=== PATIENT | female | born 1960 | race African-American/Black ===

== ENCOUNTER 2017-01-19 19:52 | Emergency (ER) | payer MEDICAID ==
[~2017-01-19] VITALS: Ht 167.6 cm; Wt 77.1 kg
--- NOTE | 2017-01-19 20:08 | Emergency Room Report ---
History of Present Illness General Chief Complaint: Multiple Trauma/Fall Source: Patient Present Illness HPI Patient reports that she was mopping about 4 hours ago she had a mechanical fall onto her left hand She has pain to the left hand up to the forearm Pain is 5/10 worse with movement or touch denies any other cuts or bleeding patient has previous trauma to the left hand denies any neck pain or photophobia Reports a purely mechanical fall in nature Allergies: Coded Allergies: No Known Allergies (Unverified , 01/19/17) Patient History Past Medical History: see triage record Pertinent Family History: none Now: No Reviewed Nursing Documentation: PMH: Agreed, PSxH: Agreed Nursing Documentation-PMH Past Medical History: No Stated History Review of Systems All Other Systems: negative except mentioned in HPI Physical Exam Vital Signs Date Time Temp Pulse Resp B/P Pulse Ox O2 Delivery O2 Flow Rate FiO2 01/19/17 19:59 98.8 89 15 137/94 97 Room Air Sp02 EP Interpretation: reviewed, normal General Appearance: well appearing, no apparent distress, non-toxic Head: normocephalic, atraumatic Eyes: bilateral eye EOMI, bilateral eye PERRL Neck: full range of motion, supple Respiratory: chest non-tender, lungs clear, normal breath sounds Cardiovascular #1: regular rate, rhythm Musculoskeletal: other - Obvious swelling to the dorsal left hand over the first metacarpal region Neurologic: alert, oriented x3, responsive Skin: other - As above Lymphatic: no adenopathy Procedures Splinting Splinting : Consent: Verbal Pre-Made Type: velcro Splint: volar Pre-Proc Neuro Vasc Exam: normal Post-Proc Neuro Vasc Exam: normal Patient Tolerated: Well Complications: None Progress left hand Medical Decision Making Diagnostic Impression: Primary Impression: Hand contusion Additional Impression: Hand fracture ER Course Given the patient's history and exam imaging study was obtained There is some nonspecific findings including the base of the Second metacarpal area Also the radial head region patient's main discomfort and clinical swelling is at the dorsal hand however Given this patient did have a splint applied to the hand Please refer to the note for that and the patient Will have a re\re imaging as needed in the next 7-10 days Other X-Ray Diagnostic Results Other X-Ray Diagnostic Results #1: EP Interpretation: Yes Findings: no dislocation, other - Soft tissue swelling, base of the second metacarpal on usual appearance consider acute versus chronic pathology, no foreign body Number of Views: 3 - left hand Other X-Ray Diagnostic Results #2: EP Interpretation: Yes Findings: no dislocation, no soft tissue swelling, other - Radial head unusual appearance, considered acute versus chronic/indeterminate pathology, no obvious foreign body Number of Views: 2 - left forearm Last Vital Signs Date Time Temp Pulse Resp B/P Pulse Ox O2 Delivery O2 Flow Rate FiO2 01/19/17 19:59 98.8 89 15 137/94 97 Room Air Status: improved Disposition: HOME, SELF-CARE Condition: Improved Scripts Ibuprofen* (MOTRIN*) 600 Mg Tablet 600 MG ORAL Q8H Y for For Pain, #20 TAB 0 Refills Prov: ZEFERINO KIRKLAND D.O. 01/19/17 Additional Instructions: Patient is provided with the discharge instructions notified to follow up with primary doctor in the next 2-3 days otherwise return to the er with any worsening symptoms. Please note that this report is being documented using DRAGON technology. This can lead to erroneous entry secondary to incorrect interpretation by the dictating instrument. ZEFERINO KIRKLAND D.O. Jan 19, 2017 20:08
[2017-01-19 20:10] VITALS: BP 135/95
[2017-01-19] MEDS ORDERED: IBUPROFEN600 MG ORAL (20:49)
[2017-01-19 20:50] VITALS: BP 135/95
--- NOTE | 2017-01-20 14:48 | Diagnostic Imaging Report ---
Indication: PAIN Technique: 3 views left hand Comparison: none Findings: Small ossific density projects adjacent to the base of the second distal phalanx on the lateral view. This appears well corticated. No associated soft tissue swelling. Corticated ossific density projects adjacent to the shaft of the fifth proximal phalanx. No definite acute fractures. No dislocations. The joint spaces are preserved. There are proliferative changes of the second distal interphalangeal joint. Impression: No definite acute bony trauma Small ossific density projected adjacent to the base of the second distal phalangeal base, may reflect old injury or degenerative changes, acute fracture doubted the collection clinical findings is recommended. Degenerative changes, as described This agrees with the preliminary interpretation provided by the emergency room physician
--- NOTE | 2017-01-20 14:48 | Diagnostic Imaging Report ---
Indications: PAIN Technique: Two views of the left forearm Comparison: None Findings: No definite acute fractures. No dislocations. There is an old healed fracture deformity of the distal ulnar shaft. A small osseous fragment is seen the superior aspect of the elbow joint on lateral view. There is no evidence of elbow joint effusion Impression: Osseous fragment at the elbow joint, as described, suspect age indeterminate radial avulsion fracture. Correlate with clinical findings as regards acuity, considered dedicated elbow radiographs if clinically indicated. No acute process otherwise Old healed distal ulnar fracture Findings discussed by phone with Dr. Weber in emergency room at time of interpretation
== END 2017-01-19 20:50 | disposition home or self-care (01) ==
LOC: EMR 20:33
DX: S60.222A Contusion of left hand, initial encounter (principal); S62.92XA Unspecified fracture of left hand, initial encounter for closed fracture; W19.XXXA Unspecified fall, initial encounter; Y92.89 Other specified places as the place of occurrence of the external cause
CPT/HCPCS: 29280; 99283

== ENCOUNTER 2017-12-01 17:48 | Emergency (ER) | payer MEDICAID ==
[~2017-12-01] VITALS: Ht 170.2 cm; Wt 68.0 kg
[~2017-12-01 17:48] MED LIST: IBUPROFEN600 MG ORAL
[2017-12-01 21:48] VITALS: BP 122/78
[2017-12-01 21:55] VITALS: BP 122/68
--- NOTE | 2017-12-02 09:27 | Diagnostic Imaging Report ---
Indication: Headache. Head trauma. Facial pain Technique: Continuous helical transaxial imaging of the maxillofacial structures obtained without intravenous contrast administration. Coronal 2-D reformats were also obtained. Study obtained in a Siemens sensation [address] Automatic Exposure Control was utilized. Total Dose length Product (DLP): Refer to CT head mGycm CT Dose Index Volume (CTDIvol): Refer to CT head mGy Comparison: None Findings: No acute fracture is appreciated. The paranasal sinuses are clear. There is some mucosal thickening in the ethmoid region. There is an old left zygomatic fracture. There is an old fracture of the left orbital floor. The globes appear normal. The retro-orbital bulbar fat is normal. There is no evidence of retrobulbar hemorrhage or proptosis. IMPRESSION: No acute injury. [facility] has communicated the preliminary results to the Emergency Department. Their findings are largely concordant with this report. The CT scanner at [facility] is accredited by the [employer] and the scans are performed using dose optimization techniques as appropriate to a performed exam including Automatic Exposure control.
--- NOTE | 2017-12-02 09:28 | Diagnostic Imaging Report ---
Indication: Neck pain. Technique: Continuous helical imaging of the cervical spine was obtained transaxially from the skull base to the upper thoracic spine. 2-D coronal and sagittal reformatted images were obtained. Automatic Exposure Control was utilized. Total Dose length Product (DLP): 2643.[address] Dose Index Volume (CTDIvol): 70.38,15.18,14.71,28.19 mGy Comparison: None Findings: There is no acute fracture or malalignment identified. There is no soft tissue swelling identified. Moderate uncovertebral arthritis is demonstrated at multiple levels. Some of the intervertebral discs show narrowing and osteophytes. Few paraseptal blebs are noted in the visualized lung apices. Impression: No acute injury Moderate spondylosis [facility] has communicated the preliminary results to the Emergency Department. Their findings are largely concordant with this report. The CT scanner at [facility] is accredited by the [employer] and the scans are performed using dose optimization techniques as appropriate to a performed exam including Automatic Exposure control.
--- NOTE | 2017-12-02 09:57 | Diagnostic Imaging Report ---
Indication: Headache Technique: Contiguous 5 mm thick transaxial imaging of the head obtained in a Siemens Sensation [address] scanner. Soft tissue and bone windows generated. Automatic Exposure Control was utilized. Total Dose length Product (DLP): 2643.[address] Dose Index Volume (CTDIvol): 70.38,15.18,14.71,28.19 mGy Comparison: 05/22/2009 Findings: There is mild prominence of the ventricles, basal cisterns, and cerebral sulci consistent with atrophy. Mild, nonspecific, white matter hypoattenuation is noted throughout the brain consistent with chronic small vessel disease. There is no midline shift, edema, acute hemorrhage, mass effect, or abnormal extra-axial fluid collections. Bones and extra osseous soft tissues are unremarkable. Impression: No acute intracranial bleed, mass effect or edema. Mild atrophy of the brain. Nonspecific white matter hypoattenuation probably due to chronic small vessel disease. [facility] has communicated the preliminary results to the Emergency Department. Their findings are largely concordant with this report. The CT scanner at [facility] is accredited by the [employer] and the scans are performed using dose optimization techniques as appropriate to a performed exam including Automatic Exposure control.
--- NOTE | 2017-12-02 14:45 | Emergency Room Report ---
History of Present Illness General Chief Complaint: Head, Face, Neck Trauma Source: EMS Present Illness HPI 57-year-old female presents to ED for evaluation. Brought in by EMS. Patient had sustained fall today he her face. This is bruising to her face. In c- collar. Patient admits to EtOH. Denies any headache. Denies any neck pain. Denies any drug use. Denies any chest pain or shortness of breath. No other any relieving factors. Denies any other substance symptoms Allergies: Coded Allergies: No Known Allergies (Unverified , 01/19/17) Patient History Past Medical History: HTN Past Surgical History: none Pertinent Family History: none Social History: Reports: alcohol use, Denies: smoking, drug use Now: No Immunizations: UTD Reviewed Nursing Documentation: PMH: Agreed, PSxH: Agreed Nursing Documentation-PMH Past Medical History: No History, Except For Hx Hypertension: Yes Review of Systems All Other Systems: negative except mentioned in HPI Physical Exam Vital Signs Date Time Temp Pulse Resp B/P (MAP) Pulse Ox O2 Delivery O2 Flow Rate FiO2 12/01/17 17:42 97.8 96 16 124/82 98 Room Air 97.9 Sp02 EP Interpretation: reviewed, normal General Appearance: no apparent distress, alert, GCS 15, non-toxic Head: normocephalic, other - abrasions to forehead, nose Eyes: bilateral eye normal inspection, bilateral eye PERRL ENT: hearing grossly normal, normal pharynx, no angioedema, normal voice Neck: full range of motion, supple/symm/no masses Respiratory: chest non-tender, lungs clear, normal breath sounds, speaking full sentences Cardiovascular #1: regular rate, rhythm, no edema Gastrointestinal: normal bowel sounds, non tender, soft, non-distended, no guarding, no rebound Rectal: deferred Genitourinary: no CVA tenderness Musculoskeletal: normal inspection Neurologic: motor strength/tone normal, sensory intact, other - intoxicated Psychiatric: normal inspection, no suicidal/homicidal ideation, other - intoxicated Skin: normal inspection Lymphatic: normal inspection Medical Decision Making Diagnostic Impression: Primary Impression: Head, face & neck injury Qualified Codes: S19.9XXA - Unspecified injury of neck, initial encounter; S09.90XA - Unspecified injury of head, initial encounter; S09.93XA - Unspecified injury of face, initial encounter Additional Impression: Alcohol intoxication Qualified Codes: F10.929 - Alcohol use, unspecified with intoxication, unspecified ER Course Hospital Course 57-year-old female presents to ED with abrasions to face, in c-collar. Status post fall. Positive EtOH Differential diagnoses include: Fracture, dislocation, sprain, contusion Clinical course Patient placed on stretcher. After initial history and physical, I ordered CT of brain, Cspine, Facial Bones CT readings unremarkable. C-collar removed Patient allowed to sleep. Now clinically sober. Walking without difficulty Diagnosis - head face and neck injury, alcohol intoxication Stable and discharged to home. apply ice. Followup with PMD. Return to ED if symptoms recur or worsen CT/MRI/US Diagnostic Results CT/MRI/US Diagnostic Results #1: Imaging Test Ordered: CT Head Impression no acute process CT/MRI/US Diagnostic Results #2: Imaging Test Ordered: CT Facial Impression no acute process CT/MRI/US Diagnostic Results #3: Imaging Test Ordered: CT Cspine Impression no acute process Last Vital Signs Date Time Temp Pulse Resp B/P (MAP) Pulse Ox O2 Delivery O2 Flow Rate FiO2 12/01/17 21:55 98.0 78 16 122/68 99 Room Air Status: improved Disposition: HOME, SELF-CARE Condition: Stable Referrals: HAYDEN MADDOX (PCP) Patient Instructions: Alcohol Intoxication, [id number] UNIQUE GAYTAN M.D. Dec 02, 2017 14:45
== END 2017-12-01 20:55 | disposition home or self-care (01) ==
LOC: EDBD 17:48 → EMR 18:55
DX: S00.81XA Abrasion of other part of head, initial encounter (principal); S00.31XA Abrasion of nose, initial encounter; S19.9XXA Unspecified injury of neck, initial encounter; W19.XXXA Unspecified fall, initial encounter; Y92.9 Unspecified place or not applicable; F10.129 Alcohol abuse with intoxication, unspecified; I10 Essential (primary) hypertension; M47.812 Spondylosis without myelopathy or radiculopathy, cervical region; G31.9 Degenerative disease of nervous system, unspecified
CPT/HCPCS: 70450; 70486; 72125; 99284

== ENCOUNTER 2017-12-22 15:03 | Emergency (ER) | payer MEDICAID ==
[~2017-12-22] VITALS: Ht 167.6 cm; Wt 71.2 kg
--- NOTE | 2017-12-22 15:12 | Emergency Room Report ---
History of Present Illness General Chief Complaint: Abdominal Pain Source: Patient Present Illness HPI 57-year-old female brought in by EMS for one day of left flank pain, constant, nonradiating, associated with polyuria without dysuria. No history of renal stones, pyelonephritis that she knows of. Patient denies blood in the urine, , nausea, vomiting, diarrhea. States she had an episode of this a few days ago however it self resolved, did not take any home pain medication. No previous abdominal pelvic surgeries or other known medical problems side from hepatitis and also arthritis Allergies: Coded Allergies: No Known Allergies (Unverified , 01/19/17) Patient History Past Medical History: other - See history of present illness Past Surgical History: none Pertinent Family History: none Social History: Denies: smoking, alcohol use, drug use Last Menstrual Period: N/A Now: No Immunizations: UTD Reviewed Nursing Documentation: PMH: Agreed, PSxH: Agreed Nursing Documentation-PMH Past Medical History: No History, Except For Hx Hypertension: Yes Review of Systems All Other Systems: negative except mentioned in HPI Physical Exam Vital Signs Date Time Temp Pulse Resp B/P (MAP) Pulse Ox O2 Delivery O2 Flow Rate FiO2 12/22/17 14:54 97.7 70 16 146/57 100 Room Air 97.7 Sp02 EP Interpretation: reviewed, normal General Appearance: normal inspection, well appearing, no apparent distress, alert, GCS 15, non-toxic Head: normocephalic, atraumatic Eyes: bilateral eye PERRL, bilateral eye EOMI ENT: normal ENT inspection, hearing grossly normal, normal pharynx, no angioedema, normal voice, TMs + canals normal, uvula midline, moist mucus membranes Neck: normal inspection, full range of motion, supple, thyroid normal, no meningismus, no bony tend Respiratory: normal inspection, lungs clear, normal breath sounds, no rhonchi, no respiratory distress, no retraction, no accessory muscle use, no wheezing, speaking full sentences Cardiovascular #1: regular rate, rhythm, no edema, no JVD, normal capillary refill Gastrointestinal: normal inspection, normal bowel sounds, non tender, soft, no mass, no peritonitis, non-distended, no guarding, no hernia, no pulsatile mass Genitourinary: CVA tenderness (L) Musculoskeletal: normal inspection, back normal, normal range of motion, no calf tenderness, pelvis stable, Negrita's Sign negative Neurologic: normal inspection, alert, oriented x3, responsive, hydraulic miner blasting III-XII nml as tested, motor strength/tone normal, cerebellar normal, normal gait, speech normal Psychiatric: normal inspection, judgement/insight normal, mood/affect normal, no suicidal/homicidal ideation, no delusions Skin: normal inspection, normal color, no rash Lymphatic: normal inspection, no adenopathy Medical Decision Making Diagnostic Impression: Primary Impression: Acute left flank pain Additional Impression: Pyelonephritis ER Course vital Signs stable, afebrile Urine grossly infected Given left flank pain possible pyelonephritis tolerating by mouth, no vomiting in ER U tox significant for polysubstance abuse ER course: Patient has remained stable during ED stay. Disposition: Patient is to be discharged to home. Prescriptions given are bactrim, Motrin Patient is instructed to follow up with their primary care doctor within 5 days. Strict return precautions discussed with patient such as fever, chills, worsening/severe pain, nausea, vomiting, which may indicate severe illness. Patient verbalizes understanding and agrees with plan. Please note that this Emergency Department Report was dictated using [employer] technology software, occasionally this can lead to erroneous entry secondary to interpretation by the dictation equipment Last Vital Signs Date Time Temp Pulse Resp B/P (MAP) Pulse Ox O2 Delivery O2 Flow Rate FiO2 12/22/17 14:54 97.7 70 16 146/57 100 Room Air 97.7 Status: improved Disposition: HOME, SELF-CARE Scripts Ibuprofen* (MOTRIN*) 600 Mg Tablet 600 MG ORAL THREE TIMES A DAY for For Pain for 7 Days, #30 TAB 0 Refills Prov: STACEY JACKSON M.D. 12/22/17 Trimethoprim/Sulfamethoxazole (Bactrim Ds Tablet) 1 Each Tablet 1 TAB ORAL TWICE A DAY for 7 Days, #14 TAB Prov: STACEY JACKSON M.D. 12/22/17 STACEY JACKSON M.D. Dec 22, 2017 15:12
[2017-12-22] MEDS ORDERED: Ketorolac 30mg Inj IV ONE (15:15)
[2017-12-22 15:28] VITALS: BP 146/57
[2017-12-22 15:59] LABS: BASOPHILS % (AUTO) 2.6 % (0.0-2.0); EOSINOPHILS % (AUTO) 3.1 % (0.0-3.0); HEMATOCRIT 41.9 % (37.0-47.0); HEMOGLOBIN 13.8 G/DL (12.0-16.0); MEAN CORPUSCULAR VOLUME 95 FL (80-99); MONOCYTES % (AUTO) 11.9 % (1.0-10.0); NEUTROPHILS % (AUTO) 46.4 % (45.0-75.0); PLATELET COUNT 234 K/UL (150-450); RED BLOOD COUNT 4.42 M/UL (4.20-5.40); RED CELL DISTRIBUTION WIDTH 13.2 % (11.6-14.8); WHITE BLOOD COUNT 7.2 K/UL (4.8-10.8)
[2017-12-22 16:11] LABS: APPEARANCE,URINE CLEAR; BILIRUBIN, URINE NEGATIVE (NEGATIVE); GLUCOSE, URINE (UA) NEGATIVE (NEGATIVE); KETONES,URINE NEGATIVE (NEGATIVE); LEUKOCYTE ESTERASE ,URINE 1+ (NEGATIVE); NITRITE,URINE NEGATIVE (NEGATIVE); PH,URINE 8 (4.5-8.0); PROTEIN,URINE NEGATIVE (NEGATIVE); UROBILINOGEN,URINE 8 MG/DL (0.0-1.0)
[2017-12-22 16:18] LABS: ANION GAP 6 mmol/L (5-15); BLOOD UREA NITROGEN 14 mg/dL (7-18); CALCIUM 8.7 MG/DL (8.5-10.1); CARBON DIOXIDE 32 MMOL/L (21-32); CHLORIDE 99 MMOL/L (98-107); CREATININE 0.9 MG/DL (0.55-1.30); POTASSIUM 3.9 MMOL/L (3.5-5.1); SODIUM 137 MMOL/L (136-145)
[2017-12-22 16:23] LABS: ALANINE AMINOTRANSFERASE 242 U/L (12-78); ALBUMIN 3.6 G/DL (3.4-5.0); ALBUMIN/GLOBULIN RATIO 0.9 (1.0-2.7); ALKALINE PHOSPHATASE 82 U/L (46-116); ASPARTATE AMINO TRANSFERASE 145 U/L (15-37); BILIRUBIN,TOTAL 0.8 MG/DL (0.2-1.0)
[2017-12-22 16:36] LABS: COLOR,URINE YELLOW
[2017-12-22] MEDS ORDERED: BACTRIM-DS1 EA ORAL (16:48)
[2017-12-22] MEDS ORDERED: IBUPROFEN600 MG ORAL (16:53)
[2017-12-22 17:15] VITALS: BP 146/57
== END 2017-12-22 17:30 | disposition home or self-care (01) ==
LOC: EDBD 15:03 → EMR 17:16
DX: N12 Tubulo-interstitial nephritis, not specified as acute or chronic (principal); I10 Essential (primary) hypertension; R10.9 Unspecified abdominal pain; F19.10 Other psychoactive substance abuse, uncomplicated
CPT/HCPCS: 36415; 80053; 80307; 81003; 83690; 85025; 87086; 96374; 99284; J1885

== ENCOUNTER 2019-01-04 08:49 | Emergency (ER) | payer MEDICAID ==
[~2019-01-04] VITALS: Ht 170.2 cm; Wt 68.0 kg
[~2019-01-04 08:49] MED LIST changes: +BACTRIM-DS1 EA ORAL
--- NOTE | 2019-01-04 08:50 | NUR ---
ED Nurse Note: Patient brought in by ambulance from the [facility]. patient mainly c/o left knee pain for 2 months, also chest pain for 1 hour prior to arrival. At the scene, patient got 162 aspirin, 1 x nitro 0.4mg. Alert and awake, in no acute distres
[2019-01-04 09:01] VITALS: BP 137/116
--- NOTE | 2019-01-04 09:13 | Emergency Room Report ---
History of Present Illness General Chief Complaint: Chest Pain Source: Patient, EMS Present Illness HPI Patient is a 55-year-old female who presented after increased left-sided chest pain. Patient reports having increased sharp chest pain associated with some muscle spasming. Patient is currently a smoker. She reports having prior history of schizophrenia and takes Seroquel as well as she reports having increased sharp pain to the left knee.Zoloft. She reports having prior surgery. Patient states that she had onset of pain during light activity which she describes a cramping. She reports having a generalized body cramping. She had prior history of alcohol abuse on previous visits as well as polysubstance abuse. Allergies: Coded Allergies: No Known Allergies (Unverified , 01/19/17) Patient History Past Medical History: see triage record Now: No Reviewed Nursing Documentation: PMH: Agreed; PSxH: Agreed Nursing Documentation-PMH Past Medical History: No History, Except For Hx Hypertension: Yes Review of Systems All Other Systems: negative except mentioned in HPI Physical Exam Vital Signs Date Time Temp Pulse Resp B/P (MAP) Pulse Ox O2 Delivery O2 Flow Rate FiO2 01/04/19 08:41 98.4 121 18 137/82 96 Room Air Sp02 EP Interpretation: reviewed, normal General Appearance: normal inspection, well appearing, no apparent distress, alert, GCS 15, Chronically Ill Head: atraumatic ENT: normal ENT inspection, hearing grossly normal, normal voice Neck: normal inspection, full range of motion, supple, no bony tend Respiratory: normal inspection, lungs clear, normal breath sounds, no respiratory distress, no retraction, no wheezing Cardiovascular #1: regular rate, rhythm, no edema Gastrointestinal: normal inspection, normal bowel sounds, non tender, soft, no guarding, no hernia Genitourinary: no CVA tenderness Musculoskeletal: normal inspection, back normal, normal range of motion Neurologic: normal inspection, alert, oriented x3, responsive, railroad auditor III-XII nml as tested, speech normal Psychiatric: normal inspection, judgement/insight normal, mood/affect normal Skin: normal inspection, normal color, no rash Medical Decision Making Diagnostic Impression: Primary Impression: Substance abuse Additional Impression: Chest pain ER Course Patient presented for chest pain. Differential diagnosis included but was not limited to acute coronary syndrome, pulmonary embolism, pneumonia, aortic dissection, shingles, pneumothorax, aortic dissection, esophageal rupture, pericarditis because of complexity of patient's case laboratory testing and imaging studies were ordered.. Chest x-ray 1 view read by radiology showed no acute process. EKG interpreted by me showed sinus tachycardia without acute ST or T wave changes. Patient was given Ativan due to agitation. Patient was noted to have what appears to be cocaine induced chest discomfort. Laboratory testing showed no evidence of acute myocardial injury. Patient was advised to stop using drugs. She is advised to follow-up with primary care physician for recheck. Labs Test 01/04/19 09:10 01/04/19 10:40 White Blood Count 12.8 K/UL (4.8-10.8) Red Blood Count 4.19 M/UL (4.20-5.40) Hemoglobin 12.7 G/DL (12.0-16.0) Hematocrit 38.6 % (37.0-47.0) Mean Corpuscular Volume 92 FL (80-99) Mean Corpuscular Hemoglobin 30.2 PG (27.0-31.0) Mean Corpuscular Hemoglobin Concent 32.8 G/DL (32.0-36.0) Red Cell Distribution Width 13.7 % (11.6-14.8) Platelet Count 138 K/UL (150-450) Mean Platelet Volume 7.9 FL (6.5-10.1) Neutrophils (%) (Auto) 65.7 % (45.0-75.0) Lymphocytes (%) (Auto) 24.3 % (20.0-45.0) Monocytes (%) (Auto) 9.1 % (1.0-10.0) Eosinophils (%) (Auto) 0.1 % (0.0-3.0) Basophils (%) (Auto) 0.7 % (0.0-2.0) Sodium Level 136 MMOL/L (136-145) Potassium Level 4.4 MMOL/L (3.5-5.1) Chloride Level 97 MMOL/L (98-107) Carbon Dioxide Level 23 MMOL/L (21-32) Anion Gap 16 mmol/L (5-15) Blood Urea Nitrogen 14 mg/dL (7-18) Creatinine 1.0 MG/DL (0.55-1.30) Estimat Glomerular Filtration Rate > 60 mL/min (>60) Glucose Level 99 MG/DL (74-106) Calcium Level 9.7 MG/DL (8.5-10.1) Total Bilirubin 1.5 MG/DL (0.2-1.0) Direct Bilirubin 0.7 MG/DL (0.0-0.3) Aspartate Amino Transf (AST/SGOT) 119 U/L (15-37) Alanine Aminotransferase (ALT/SGPT) 146 U/L (12-78) Alkaline Phosphatase 83 U/L (46-116) Total Creatine Kinase 201 U/L (26-308) Creatine Kinase MB 2.6 NG/ML (0.0-3.6) Creatine Kinase MB Relative Index 1.2 Troponin I 0.022 ng/mL (0.000-0.056) Pro-B-Type Natriuretic Peptide 258 pg/mL (0-125) Total Protein 7.5 G/DL (6.4-8.2) Albumin 3.9 G/DL (3.4-5.0) Globulin 3.6 g/dL Albumin/Globulin Ratio 1.1 (1.0-2.7) Lipase 49 U/L (73-393) Serum Alcohol < 3 mg/dL Urine Opiates Screen Negative (NEGATIVE) Urine Barbiturates Screen Negative (NEGATIVE) Phencyclidine (PCP) Screen Negative (NEGATIVE) Urine Amphetamines Screen Negative (NEGATIVE) Urine Benzodiazepines Screen Negative (NEGATIVE) Urine Cocaine Screen Positive (NEGATIVE) Urine Marijuana (THC) Screen Negative (NEGATIVE) EKG Diagnostic Results Rate: tachycardiac - 115 Rhythm: NSR ST Segments: no acute changes Last Vital Signs Date Time Temp Pulse Resp B/P (MAP) Pulse Ox O2 Delivery O2 Flow Rate FiO2 01/04/19 09:01 98.5 117 19 137/116 98 Room Air Status: improved Disposition: HOME, SELF-CARE Condition: Stable Charles Weber MD Jan 04, 2019 09:13
[2019-01-04] MEDS ORDERED: LORazepam Inj 2mg/ml 1ml IV ONE (09:15)
[2019-01-04 09:24] LABS: BASOPHILS % (AUTO) 0.7 % (0.0-2.0); EOSINOPHILS % (AUTO) 0.1 % (0.0-3.0); HEMATOCRIT 38.6 % (37.0-47.0); HEMOGLOBIN 12.7 G/DL (12.0-16.0); LYMPHOCYTES % (AUTO) 24.3 % (20.0-45.0); MEAN CORPUSCULAR VOLUME 92 FL (80-99); MONOCYTES % (AUTO) 9.1 % (1.0-10.0); NEUTROPHILS % (AUTO) 65.7 % (45.0-75.0); PLATELET COUNT 138 K/UL (150-450); RED BLOOD COUNT 4.19 M/UL (4.20-5.40); RED CELL DISTRIBUTION WIDTH 13.7 % (11.6-14.8); WHITE BLOOD COUNT 12.8 K/UL (4.8-10.8)
[2019-01-04 09:34] LABS: ANION GAP 16 mmol/L (5-15); BLOOD UREA NITROGEN 14 mg/dL (7-18); CALCIUM 9.7 MG/DL (8.5-10.1); CARBON DIOXIDE 23 MMOL/L (21-32); CHLORIDE 97 MMOL/L (98-107); POTASSIUM 4.4 MMOL/L (3.5-5.1); SODIUM 136 MMOL/L (136-145)
[2019-01-04 09:49] LABS: ALANINE AMINOTRANSFERASE 146 U/L (12-78); ALBUMIN 3.9 G/DL (3.4-5.0); ALBUMIN/GLOBULIN RATIO 1.1 (1.0-2.7); ALKALINE PHOSPHATASE 83 U/L (46-116); ASPARTATE AMINO TRANSFERASE 119 U/L (15-37); BILIRUBIN,TOTAL 1.5 MG/DL (0.2-1.0); CKMB 2.6 NG/ML (0.0-3.6); CREATINE KINASE 201 U/L (26-308)
[2019-01-04 09:51] LABS: BILIRUBIN,DIRECT 0.7 MG/DL (0.0-0.3)
--- NOTE | 2019-01-04 10:09 | Diagnostic Imaging Report ---
Indication: Chest pain Technique: One view of the chest Comparison: none Findings: Lungs and pleural spaces are clear. Heart size is normal Impression: No acute process
--- NOTE | 2019-01-04 10:47 | NUR ---
ED Nurse Note: urine sample sent down to lab
[2019-01-04] MEDS ORDERED: Acetaminophen 500mg (ES) tab ORAL ONE (13:45)
--- NOTE | 2019-01-04 13:51 | NUR ---
ED Nurse Note: pt given dc aci and aware of f/u with her pmd. pt given tylenol for her chronic bilateral leg pain. pt a/ox3 upon dc. pt toelrates food given well. amb steady gait iv site x 2 dc'd intactly..
[2019-01-04 13:53] VITALS: BP 135/89
--- NOTE | 2019-01-04 14:11 | NUR ---
ED Nurse Note:pt given cane at her request. amb steady gait with cane use and calling for a ride home.
--- NOTE | 2019-01-06 07:51 | Cardiology Report ---
APPROVED REPORT EKG Measurement Heart [id number] Sinus tachycardia Otherwise normal ECG
== END 2019-01-04 14:13 | disposition home or self-care (01) ==
LOC: EDBD 08:49 → EMR 09:15
DX: F19.10 Other psychoactive substance abuse, uncomplicated (principal); R07.89 Other chest pain; I10 Essential (primary) hypertension
CPT/HCPCS: 36415; 71045; 80053; 80307; 80329; 82248; 82550; 82553; 83690; 83880; 84484; 85025; 93005; 96374; 99284; J7040

== ENCOUNTER 2019-07-19 15:33 | Emergency (ER) | payer MEDICAID ==
[~2019-07-19] VITALS: Ht 167.6 cm; Wt 72.6 kg
[2019-07-19 15:59] VITALS: BP 141/88
[2019-07-19] MEDS ORDERED: Tylenol #3 tab (300mg/30mg) ORAL ONE (16:00)
--- NOTE | 2019-07-19 16:00 | NUR ---
ED Nurse Note:pt. was BIBA from home with pain and light redness in right groin area, pt. is A/Ox4 ambulatory with cane, given pain meds and food
--- NOTE | 2019-07-19 16:33 | Emergency Room Report ---
History of Present Illness General Chief Complaint: Pain Source: EMS Present Illness HPI 59-year-old female presents to the emergency department complaining of 8 out of 10 severity pain and tenderness in the right groin/hip area progressive x3 days. Patient reports pain is exacerbated upon walking/bearing weight. Patient denies trauma or fall. Patient denies previous injury to this extremity. Patient denies fevers, chills, or soft tissue swelling. Patient reports he noticed a small area of redness on the right inner groin today. Denies abdominal pain, dysuria, hematuria or urinary frequency. Patient denies paresthesias. She denies any other aggravating or relieving factors. She reports no response from taking Motrin. Allergies: Coded Allergies: No Known Allergies (Unverified , 01/19/17) Patient History Past Medical History: see triage record Past Surgical History: none Pertinent Family History: none Now: No Immunizations: UTD Reviewed Nursing Documentation: PMH: Agreed; PSxH: Agreed Nursing Documentation-PMH Past Medical History: No History, Except For Hx Hypertension: Yes History Of Psychiatric Problem: Yes - Bipolar, Schizophrenia Review of Systems All Other Systems: negative except mentioned in HPI Physical Exam Vital Signs Date Time Temp Pulse Resp B/P (MAP) Pulse Ox O2 Delivery O2 Flow Rate FiO2 07/19/19 15:24 97.9 87 16 141/88 (105) 99 Room Air Sp02 EP Interpretation: reviewed, normal General Appearance: no apparent distress, alert, GCS 15, non-toxic Head: normocephalic, atraumatic Eyes: bilateral eye normal inspection, bilateral eye PERRL ENT: hearing grossly normal, normal voice Neck: full range of motion Respiratory: chest non-tender, lungs clear, normal breath sounds, speaking full sentences Cardiovascular #1: regular rate, rhythm Gastrointestinal: normal bowel sounds, non tender, soft Genitourinary: normal inspection Musculoskeletal: back normal, gait/station normal, normal range of motion, tender - TTP to the inner, anterior and lateral right hip, no swelling, no bruises. No obvious deformities. Pt. is ambulatory with cane. Neurologic: alert, oriented x3, responsive, motor strength/tone normal, sensory intact, speech normal, grossly normal Psychiatric: judgement/insight normal Skin: other - mild erythema towards the right inguinal/vaginal area mild warmth. Lymphatic: no adenopathy Medical Decision Making PA Attestation Dr. Mccann Is my supervising Physician whom patient management has been discussed with. Diagnostic Impression: Primary Impression: Cellulitis Qualified Codes: L03.115 - Cellulitis of right lower limb Additional Impression: Hip pain, right ER Course 59-year-old female presents to the emergency department complaining of 8 out of 10 severity pain and tenderness in the right groin/hip area progressive x3 days. Patient reports pain is exacerbated upon walking/bearing weight. Patient denies trauma or fall. Patient denies previous injury to this extremity. Patient denies fevers, chills, or soft tissue swelling. Patient reports he noticed a small area of redness on the right inner groin today. Denies abdominal pain, dysuria, hematuria or urinary frequency. Patient denies paresthesias. She denies any other aggravating or relieving factors. She reports no response from taking Motrin. Ddx considered but are not limited to Fracture, dislocation, contusion, Sprain/ Strain/Spasm, vascular obstruction, Cellulitis, LAD, Hernia, Neoplastic mets. Vital signs: are WNL, pt. is afebrile H&PE are most consistent with musculoskeletal injury will perform imaging to r/ o fractures/dislocations. ORDERS: - X-ray Right Hip 3 views - negative for fx, Dislocation, or significant soft tissue injury, per preliminary read in ED, and signed by MOSES Mathias , my supervising physician has reviewed, and agrees with my interpretation. ED INTERVENTIONS: - Tylenol #3 PO DISCHARGE: At this time pt. is stable for d/c to home. Will provide printed patient care instructions, and any necessary prescriptions. Care plan and follow up instructions have been discussed with the patient prior to discharge. Labs Test 07/19/19 18:20 Urine Color Yellow Urine Appearance Clear Urine pH 5 (4.5-8.0) Urine Specific [place] 1.025 (1.005-1.035) Urine Protein Negative (NEGATIVE) Urine Glucose (UA) Negative (NEGATIVE) Urine Ketones Negative (NEGATIVE) Urine Blood Negative (NEGATIVE) Urine Nitrite Negative (NEGATIVE) Urine Bilirubin Negative (NEGATIVE) Urine Urobilinogen 4 MG/DL (0.0-1.0) Urine Leukocyte Esterase Negative (NEGATIVE) Other X-Ray Diagnostic Results Other X-Ray Diagnostic Results : X-Ray ordered: Right Hip # of Views/Limited Vs Complete: 3 View Indication: Pain EP Interpretation: Yes MOSES Xray: Interpretation reviewed, by supervising MD, and agrees with findings. Interpretation: no dislocation, no soft tissue swelling, no fractures Impression: No acute disease Electronically Signed by: Sangeetha Mathias PA-C Last Vital Signs Date Time Temp Pulse Resp B/P (MAP) Pulse Ox O2 Delivery O2 Flow Rate FiO2 07/19/19 15:59 97.9 89 16 141/88 99 Room Air Status: improved Disposition: HOME, SELF-CARE Condition: Stable Scripts Acetaminophen* (TYLENOL EXTRA STRENGTH*) 500 Mg Tablet 500 MG ORAL Q6H, #20 TAB 0 Refills Prov: Sangeetha Mathias 07/19/19 Cephalexin* (KEFLEX*) 500 Mg Capsule 500 MG ORAL EVERY 12 HOURS for 7 Days, #14 CAP 0 Refills Prov: Sangeetha Mathias 07/19/19 Referrals: HAYDEN MADDOX (PCP) Patient Instructions: Hip Pain Additional Instructions: Take medications as directed. Follow up with a Primary Care Provider in 3-5 days, even if your symptoms have resolved. --Please review list of primary care clinics, if you do not already have a primary care provider Return sooner to ED if new symptoms occur, or current symptoms become worse. - Please note that this Emergency Department Report was dictated using [employer] interviewer technology software, occasionally this can lead to erroneous entry secondary to interpretation by the dictation equipment. Sangeetha Mathias Jul 19, 2019 16:33
--- NOTE | 2019-07-19 16:54 | Diagnostic Imaging Report ---
Indication: Reason For Exam: PAIN Technique: One view of the pelvis, 2 views of the right hip Comparison: none Findings: No acute fractures. No dislocations. There is a bone island within the right femoral neck. The joint spaces are preserved. Impression: No acute process
[2019-07-19] MEDS ORDERED: CEPHALEXIN500 MG ORAL (17:00)
[2019-07-19] MEDS ORDERED: TYLENOL EXTRA500 MG ORAL (17:00)
[2019-07-19 18:46] LABS: APPEARANCE,URINE CLEAR; BILIRUBIN, URINE NEGATIVE (NEGATIVE); COLOR,URINE YELLOW; GLUCOSE, URINE (UA) NEGATIVE (NEGATIVE); KETONES,URINE NEGATIVE (NEGATIVE); LEUKOCYTE ESTERASE ,URINE NEGATIVE (NEGATIVE); NITRITE,URINE NEGATIVE (NEGATIVE); PH,URINE 5 (4.5-8.0); PROTEIN,URINE NEGATIVE (NEGATIVE); UROBILINOGEN,URINE 4 MG/DL (0.0-1.0)
--- NOTE | 2019-07-19 19:03 | NUR ---
HAND-OFF: Report given to Polly.
--- NOTE | 2019-07-19 19:15 | NUR ---
ED Nurse Note: Handover from RN
--- NOTE | 2019-07-19 19:20 | NUR ---
ED Nurse Note: Patient known hypertensive usually takes medications in the orning has not yet taken anti hypertensive today - will take medication at home as prescribed.
--- NOTE | 2019-07-19 19:26 | NUR ---
ER DISCHARGE NOTE: Patient lives with cousin. Patient is cleared to be discharged per ERMD, pt is aox4, on room air, with stable vital signs. pt was given dc and prescription instructions, pt was able to verbalize understanding, pt id band removed. pt is able to ambulate with steady gait using cane. pt took all belongings.
[2019-07-19 19:27] VITALS: BP 154/93
== END 2019-07-19 19:30 | disposition home or self-care (01) ==
LOC: EDBD 15:33 → EMR 15:51
DX: L03.115 Cellulitis of right lower limb (principal); M25.551 Pain in right hip; F31.9 Bipolar disorder, unspecified; I10 Essential (primary) hypertension; F20.9 Schizophrenia, unspecified
CPT/HCPCS: 73510; 81003; Z7502; 99283